=== PATIENT | female | born 1960 | race Caucasian/White ===

== ENCOUNTER 2017-06-22 10:37 | Emergency (ER) | payer SELFPAY ==
[~2017-06-22] VITALS: Ht 165.1 cm; Wt 77.1 kg
[2017-06-22 10:57] VITALS: BP 156/95
[2017-06-22] MEDS ORDERED: IBUPROFEN 600 MG TABLET PO ONE ×2 (11:30)
== END 2017-06-22 13:39 | disposition home or self-care (01) ==
LOC: ER 10:40
DX: S76.012A Strain of muscle, fascia and tendon of left hip, initial encounter (principal); S76.011A Strain of muscle, fascia and tendon of right hip, initial encounter; S70.12XA Contusion of left thigh, initial encounter; V00.09XA Pedestrian on foot injured in collision with other pedestrian conveyance, initial encounter; Y93.89 Activity, other specified; Y92.413 State road as the place of occurrence of the external cause; Y99.8 Other external cause status
CPT/HCPCS: 72170; 99283; A4606; Z7610